=== PATIENT | female | born 1990 | race Two or more races ===

== ENCOUNTER 2018-11-08 12:31 | Emergency (ER) | payer OTHER ==
[~2018-11-08] VITALS: Ht 165.1 cm; Wt 75.7 kg
== END 2018-11-08 17:25 | disposition home or self-care (01) ==
LOC: ER 12:31
DX: O20.0 Threatened abortion (principal)

== ENCOUNTER 2019-03-18 13:15 | Outpatient (CLI) | payer OTHER | END 2019-03-18 13:53 | disposition home or self-care (01) | LOC: NST 13:15 | DX: Z34.82 Encounter for supervision of other normal pregnancy, second trimester (principal) ==

== ENCOUNTER → 2019-03-18 | Emergency (ER) | payer OTHER ==
[~2019-03-18] VITALS: Ht 165.1 cm; Wt 85.3 kg
== END | disposition left against medical advice (07) ==
LOC: ER 11:04
DX: Z53.20 Procedure and treatment not carried out because of patient's decision for unspecified reasons (principal)

== ENCOUNTER 2019-04-27 15:00 | Inpatient (IN) | payer OTHER ==
[~2019-04-27] VITALS: Ht 165.1 cm; Wt 88.9 kg
[2019-05-06] MEDS ORDERED: PANADOL EXTRA500 MG PO (19:16)
[2019-05-06] MEDS ORDERED: PRENATAL TABLE1 EAC1 PO (19:16)
== END 2019-05-12 15:44 | disposition home or self-care (01) | DRG 807 ==
LOC: O/R 15:00 → OB/GYN 05-09 05:44 → LDR 05-09 05:44 → OB/GYN 05-10 00:47 → LDR 05-18 15:00
PROVIDERS: ADMIT Specialist
PROC: 4A1HXCZ Monitoring of Products of Conception, Cardiac Rate, External Approach (ICD-10-PCS; 2019-05-09)
PROC: 10E0XZZ Delivery of Products of Conception, External Approach (ICD-10-PCS; principal; 2019-05-10)
PROC: 0UQGXZZ Repair Vagina, External Approach (ICD-10-PCS; 2019-05-10)
PROC: 4A033R1 Measurement of Arterial Saturation, Peripheral, Percutaneous Approach (ICD-10-PCS; 2019-05-10)
DX: O71.4 Obstetric high vaginal laceration alone (principal); Z37.0 Single live birth; Z3A.39 39 weeks gestation of pregnancy

== ENCOUNTER 2019-05-06 17:44 | Outpatient (CLI) | payer OTHER ==
[2019-05-06] MEDS ORDERED: PANADOL EXTRA500 MG PO (19:16)
[2019-05-06] MEDS ORDERED: PRENATAL TABLE1 EAC1 PO (19:16)
== END 2019-05-06 21:03 | disposition home or self-care (01) ==
LOC: OBS/DEL 17:44
DX: O47.1 False labor at or after 37 completed weeks of gestation (principal); O33.8 Maternal care for disproportion of other origin

== ENCOUNTER 2025-02-27 10:00 | Day surgery (SDC) | payer OTHER ==
[~2025-02-27 10:00] MED LIST: PANADOL EXTRA500 MG PO; PRENATAL TABLE1 EAC1 PO
[2025-02-27] MEDS ORDERED: CEFAZOLIN SODIUM 1,000 MG VIAL IV ONE (15:15)
[2025-02-27] MEDS ORDERED: LIDOCAINE HCL 1%/EPINEPHRINE 20ML VIAL IJ ONE (15:15)
[2025-02-27] MEDS ORDERED: KETOROLAC TROMETHAMINE 60 MG VIAL IM ONE (15:45)
== END 2025-02-27 19:15 | disposition home or self-care (01) ==
LOC: CIR.AMB 10:00
PROVIDERS: ATTEND Specialist
DX: N83.8 Other noninflammatory disorders of ovary, fallopian tube and broad ligament (principal); Z30.2 Encounter for sterilization